=== PATIENT | male | born 1990 | race Caucasian/White ===

== ENCOUNTER 2017-07-07 15:20 | Emergency (ER) | payer MEDICAID ==
--- NOTE | 2017-07-07 15:31 | EDPHY ---
H & P Stated Complaint: pain mgmt Time Seen by Provider: 07/07/17 15:31 - Personal History Current Tetanus/Diphtheria Vaccine: Yes Current Tetanus Diphtheria and Acellular Pertussis (TDAP): Yes - Medical/Surgical History Hx Asthma: Yes Hx Chronic Respiratory Disease: No Hx Diabetes: No Hx Cardiac Disease: No Hx Renal Disease: No Hx Cirrhosis: No Hx Alcoholism: No Hx HIV/AIDS: No Hx Splenectomy or Spleen Trauma: No Other PMH: 4 back surgeries, asthma - Social History Smoking Status: Never smoked Constitutional: Initial Vital Signs Temperature (C) 37.4 C 07/07/17 15:25 Heart Rate 101 H 07/07/17 15:25 Respiratory Rate 16 07/07/17 15:25 Blood Pressure 132/121 H 07/07/17 15:25 O2 Sat (%) 98 07/07/17 15:25 O2 Delivery Mode Room Air Allergies/Adverse Reactions: clarithromycin [From Biaxin] Allergy (Verified 07/07/17 15:24) Vomiting Penicillins Allergy (Verified 07/07/17 15:24) Rash Home Medications: Medication Instructions Recorded Advair Hfa 45-21 Mcg Inhaler 07/07/17 Bev Allergy 07/07/17 Prevacid 07/07/17 oxyCODONE CR 07/07/17 Medical Decision Making ED Course/Re-evaluation: CHIEF COMPLAINT: Back pain HISTORY OF PRESENT ILLNESS: The patient is a 26 y/o male with a history of multiple back surgeries and chronic back pain complaining of worsening back pain today. He has been driving more recently and this has exacerbated his back pain. He also believes that his right foot has been weaker than normal. Yesterday he went to [facility] Emergency [facility] and had an MRI preformed, but is unsure of the findings. He was advised to take his pain medications as needed. He was prescribed 6 extra Percocet tablets from the emergency physician, but the pharmacist refused to fill this prescription. He normally takes 50mg Oxycodone IR supplemented by several tablets of Percocet. Today the pain became to much so he called Dr. Caleb Andrew, his neurosurgeon, and was advised to present to the emergency department again. His next appointment with his pain management physician is in two weeks. Denies chest pain, abdominal pain, urinary or bowel complaints, fever. REVIEW OF SYSTEMS: A 10 point review of systems was performed and is negative with the exception of the elements mentioned in the history of present illness. PHYSICAL EXAM: HR, BP, O2 Sat, RR. Temp noted General Appearance: Appears to be in significant discomfort and is tearful, alert, well hydrated, appropriate, and non-toxic appearing. Head: Atraumatic without scalp tenderness or obvious injury Eyes: Pupils equal, round, reactive to light and accommodation, EOMI, no trauma , no injection. Ears: Clear bilaterally, no perforation, normal landmarks Nose: Atraumatic, no rhinorrhea, clear. Throat: There is no erythema or exudates, no lesions, normal tonsils, mucus membranes moist. Neck: Supple, nontender, no lymphadenopathy. Respiratory: No retractions, no distress, no wheezes, and no accessory muscle use. Lungs are clear to auscultation bilaterally. Cardiovascular: Regular rate and rhythm, no murmurs, rubs, or gallops. Good capillary refill all extremities. Gastrointestinal: Abdomen is soft, nontender, non-distended, no masses, no rebound, no guarding, no peritoneal signs. Musculoskeletal: Normal active ROM of all extremities, atraumatic. Neurological: Alert, appropriate, and interactive. Non-focal neuro. Skin: No rashes, good turgor, no nodules on palpation. Past medical history: Asthma, chronic back pain Past surgical history: 4 back surgeries Family history: Denies Social history: Lives in [place], single, employed DIFFERENTIAL DIAGNOSIS: The differential diagnosis for the patient's back pain included but was not limited to musculoskeletal pain, epidural abscess, herniated disk, spinal fracture, and intra-abdominal causes including urinary system. MEDICAL DECISION MAKING: The patient is a 26 y/o male with a history of multiple back surgeries and chronic back pain complaining of worsening back pain today. On exam he appears to be in significant discomfort and is tearful at times. I do not see any demonstrable right-sided foot drop. He normally takes oxycodone and Percocet, but recently ran out. He is declining Dilaudid at this time. 30mg OxyIR administered. 1551: Consulted with Dr. Andrew, neurosurgeon, regarding this patient. He believes this pain is due to the patient's pain management physician decreasing the pain prescriptions. Dr. Andrew reviewed the MRI images from yesterday and did not see any significant findings. The patient has an appointment with Dr. Andrew on 07/11/17. This patient will be sent home with pain medication prescriptions to hold him over until his visit with Dr. Andrew. 1558: Reassessed patient and discussed plan to keep follow up appointment with Dr. Andrew. 1607: Consulted with Dr. Hewitt, transplant surgeon physician for patient's PCP. She believes the patient should not be dispensed pain medications. The patient has received several early refills for his pain medications and recently had a 60 pill refill on 06/28/17, 9 days ago, which he used up. The patient has been calling his neurosurgeon, pain management, primary care provider, and visited another emergency department asking for pain medications. Additional 5mg PO Oxy IR and 1 tab Percocet administered. 1633: Reassessed patient and discussed plan to not give additional pain medications. He is concerned about withdrawing and is requesting to be admitted for pain management. 1642: Consulted with hospitalist service, Dr. Subramanian, is happy to admit this patient but will not give the patient pain medications. 1643: Reassessed patient and discussed Dr. Subramanian's plan to not give pain medications during admission. Patient would like to be discharged home. I have prescribed him Clonidine and Halcion. Return precautions provided; patient is comfortable with this plan. - Data Points Medications Given: Discontinued Medications Oxycodone HCl (Oxycodone Ir) 30 mg PO ONCE ONE Stop: 07/07/17 15:42 Last Admin: 07/07/17 16:25 Dose: 30 mg Oxycodone HCl (Oxycodone Ir) 5 mg PO EDNOW ONE Stop: 07/07/17 16:09 Last Admin: 07/07/17 16:25 Dose: 5 mg Oxycodone/Acetaminophen (Percocet 5/325) 1 tab PO EDNOW ONE Stop: 07/07/17 16:09 Last Admin: 07/07/17 16:25 Dose: 1 tab Departure - Departure Disposition: Home, Routine, Self-Care Clinical Impression: Acute exacerbation of chronic low back pain, Pain management Condition: Good Instructions: Chronic Back Pain (ED) Additional Instructions: 1. Take Clonidine as prescribed. 2. Take Halcion as prescribed. 3. Followup with your neurosurgeon on July 11, 2017. 4. Followup with your PCP in the next week. 5. Return to the emergency department for severe pain, fever, numbness, difficulty walking, change in location or nature of pain or other concerns. Referrals: Brenden Cutler DO [Primary Care Provider] - As per Instructions Caleb Andrew MD [Medical Doctor] - As per Instructions Report Scribed for: Coleman Ocampo Report Scribed by: Radha Murray Date of Report: 07/07/17 Time of Report: 15:32
[2017-07-07] MEDS ORDERED: oxyCODONE IR 5 MG TAB PO ONE (16:08)
[2017-07-07] MEDS ORDERED: OXYCODONE/APAP 5/325 TAB PO ONE (16:08)
[2017-07-07 17:06] VITALS: BP 152/106
== END 2017-07-07 17:04 | disposition home or self-care (01) ==
DX: M54.5 Low back pain (principal); J45.909 Unspecified asthma, uncomplicated